=== PATIENT | male | born 1985 | race Hispanic/Latino ===

== ENCOUNTER 2017-05-03 10:34 | Emergency (ER) | payer BC, OTHER ==
[~2017-05-03] VITALS: Ht 177.8 cm; Wt 122.5 kg
[2017-05-03] MEDS ORDERED: HYDROCODONE/APAP 10MG-325MG TAB PO ONE (10:45)
[2017-05-03] MEDS ORDERED: CYCLOBENZAPRINE HCL 10 MG TAB PO ONE (10:45)
--- NOTE | 2017-05-03 13:10 | Diagnostic Imaging Report ---
PROCEDURE:L-SPINE COMPLETE COMPARISON:MR, MRI LUMBAR SPINE W/O, 03/17/2011, 18:14. INDICATIONS:LOWER BACK PAIN FINDINGS: 5 nonrib-bearing lumbar vertebrae. No acute displaced fracture or dislocation. No spondylolisthesis. Bilateral oblique views show no spondylolysis. Vertebral body heights and intervertebral disc spaces are preserved. No lytic or blastic lesions. Soft tissues are unremarkable. CONCLUSION: Essentially unremarkable lumbar spine radiographs. Bryant Gomez M.D. Dictated by: Bryant Gomez M.D. on 05/03/2017 at 13:20 Electronically approved by: Bryant Gomez M.D. on 05/03/2017 at 13:20
== END 2017-05-03 13:50 | disposition home or self-care (01) ==
LOC: ER 10:34
DX: S39.012A Strain of muscle, fascia and tendon of lower back, initial encounter (principal); V43.52XA Car driver injured in collision with other type car in traffic accident, initial encounter
CPT/HCPCS: 72110; 99283